=== PATIENT | male | born 1980 | race Caucasian/White ===

== ENCOUNTER 2017-08-27 02:06 | Observation (INO) | payer OTHER ==
[2017-08-27] VITALS (8 sets, daily range): BP systolic 134–146; BP diastolic 82–92; PULSE 71–105; TEMP 36.5–37.2; O2SAT 94–97; Ht 188 cm; Wt 132.0 kg
[~2017-08-27] VITALS: Ht 188 cm; Wt 132.0 kg
[2017-08-27] MEDS ORDERED: SODIUM CHLORIDE 0.9% 1000ML 1,000 ML IV STA (02:49)
[2017-08-27 03:21] LABS: BASO % 0.4 %; BASO ABS # 0.04 K/uL (0-0.2); EOS % 0.8 %; EOS ABS # 0.08 K/uL (0-0.5); HEMATOCRIT 47.6 % (42-52); HEMOGLOBIN 16.6 g/dL (14.0-18.0); IG# 0.02 K/uL (0.00-0.02); LYMPH ABS # 2.25 K/uL (1.2-3.4); MEAN CELL VOLUME 93.3 fL (80-100); MEAN CORPUSCULAR HEMOGLOBIN 32.5 pg (25-34); MEAN CORPUSCULAR HGB CONC 34.9 g/dl (32-36); MONO % 3.5 %; MONO ABS # 0.34 K/uL (0.11-0.59); NEUT % 72.1 %; NEUT ABS # 7.06 K/uL (1.4-6.5); PLATELET COUNT 320 K/uL (130-400); RED CELL DISTRIBUTION WIDTH CV 12.7 % (11.5-14.5); RED CELL DISTRIBUTION WIDTH SD 43.2 fL (36.4-46.3); WHITE BLOOD COUNT 9.79 K/uL (4.8-10.8)
[2017-08-27 03:34] LABS: INR 0.9 (0.9-1.1)
[2017-08-27 04:13] LABS: ALBUMIN 4.4 gm/dl (3.4-5.0); CALCIUM 9.1 mg/dl (8.5-10.1); CREATININE 1.39 mg/dl (0.60-1.40); TOTAL PROTEIN 8.9 gm/dl (6.4-8.2)
[2017-08-27] MEDS ORDERED: SODIUM CHLORIDE 0.9% 1000ML 2,000 ML IV STA (06:23)
--- NOTE | 2017-08-27 07:22 | DIAGNOSTIC IMAGING REPORT ---
CHEST ONE VIEW PORTABLE HISTORY: pre-op COMPARISON: None. FINDINGS: The lungs are clear. Cardiac silhouette is normal in size. No pleural effusions. No pneumothorax. IMPRESSION: No acute process. Electronically signed by: Lewis Garcia M.D. 08/27/2017 7:21 AM Dictated Date/Time: 08/27/2017 7:20 AM
--- NOTE | 2017-08-27 07:23 | DIAGNOSTIC IMAGING REPORT ---
R ANKLE MIN 3 VIEWS ROUTINE CLINICAL HISTORY: fall, pain COMPARISON: Right tibia and fibula radiographs August 27, 2017 at 2:14 am. FINDINGS: Interval casting is noted. Note is made of an oblique mildly displaced fracture through the distal shaft of the right tibia as well as an oblique mildly displaced fracture through the distal shaft of the right fibula. There is no ankle mortise widening. Well-corticated ossicles along the medial malleolus are likely old. IMPRESSION: Acute oblique mildly displaced fractures of the distal shaft of the right tibia and fibula. Electronically signed by: Juan Jose Scott M.D. 08/27/2017 7:22 AM Dictated Date/Time: 08/27/2017 7:15 AM
--- NOTE | 2017-08-27 07:24 | DIAGNOSTIC IMAGING REPORT ---
R TIBIA/FIBULA 2 VIEWS ROUTINE CLINICAL HISTORY: Fall. Right lower leg pain. COMPARISON STUDY: None. FINDINGS: Mildly displaced oblique fractures involving the proximal shaft of the fibula as well as the distal shafts of the tibia and fibula. The distal tibial fracture demonstrates up to 8 mm of lateral displacement and 1.3 cm of posterior displacement. Distal fibular fracture also demonstrates up to 1.2 cm of posterior displacement. Proximal fibular fracture demonstrates up to 8 mm of anterior displacement. Soft tissue swelling within the right lower leg. IMPRESSION: Displaced oblique fractures involving the distal shafts of the right tibia and fibula as well as the proximal shaft of the right fibula. Electronically signed by: Lewis Garcia M.D. 08/27/2017 7:23 AM Dictated Date/Time: 08/27/2017 7:21 AM
--- NOTE | 2017-08-27 07:53 | History and Physical ---
History & Physical Date Aug 27, 2017. Chief Complaint Right leg fractures. History of Present Illness Thompson is a pleasant 37-year-old male, who is cleaning up at his work [employer] when he sustained a fall injuring his right lower extremity. He was brought to the emergency room where x-rays were obtained of his right tib-fib and he was splinted. I was contacted for further evaluation and treatment. Additional History Hepatic Disease: No Endocrine Disorder: No Kidney Disease: No Hypertension: No Heart Disease: No Bleeding Tendencies: No Infectious Diseases: No Allergies Coded Allergies: No Known Allergies (Unverified , 08/27/17) Home Medications No Active Prescriptions or Reported Meds Physical Examination Head: normocephalic, atraumatic Neck: trachea midline Respiratory/Chest: normal breath sounds, no respiratory distress Cardiovascular: regular rate, rhythm Abdomen / GI: non tender Extremities: + pertinent finding (right lower extremity, he is in a AO type splint with a knee immobilizer. His sensation to light touch is intact distally. Brisk cap refill less than 2 seconds. He is able to wiggle his toes up and down.) Neurologic/Psych: oriented x 3 Addiitonal Comments: Patient is in no acute distress resting comfortably in his hospital bed. They have an appropriate mood and affect. They weigh 132 kg and are 188 cm tall. VITALS: Pulse 78-104, respiratory rate 20, blood pressure 137/80, pulse ox 98% on room air. RADIOGRAPHS: Right tib-fib show a short oblique distal third tibia fracture and fibula fracture. There is also an oblique fracture of the proximal third of the fibula. 3 views of the right ankle again show the above findings of a distal third oblique tibia fracture and a Nazario C fibula fracture. There appears to be an old a avulsion type fracture from the medial malleolus. The syndesmosis appears intact. Diagnosis Right distal third tib-fib fracture and proximal fibula fracture, concerning for syndesmotic injury, closed, emergency room visit. ASA Classification: ASA Class II Plan of Treatment After a lengthy discussion with the patient today regarding my above clinical findings, as well as reviewing their imaging, their treatment options of conservative management versus surgical intervention were discussed. The risk and benefits of each were discussed. The risks of surgery included but not limited to: Infection, bleeding, nerve damage, continued pain, stiffness, failure of the repair, failure of the hardware, compartment syndrome, repeat surgery, PA, stroke, , and deep vein thrombosis. They would like to proceed with surgery and informed consent was signed. They will be admitted for observation. The patient understood all my instructions and explanation; all their questions were satisfactorily addressed.
[2017-08-27] MEDS ORDERED: MoRPHine SULFATE 2 MG/ML CARP IV PRN (08:00)
[2017-08-27] MEDS ORDERED: DiphenhydrAMINE HCL 50 MG/ML VIAL IV PRN ×2 (08:00→15:30)
[2017-08-27] MEDS ORDERED: ONDANSETRON INJ 2 MG/ML 2 ML VIAL IV PRN ×3 (08:00→15:30)
[2017-08-27] MEDS ORDERED: MoRPHine SULFATE 2 MG/ML CARP ONE (08:08)
[2017-08-27] MEDS ORDERED: ONDANSETRON INJ 2 MG/ML 2 ML VIAL ONE ×2 (08:08→13:15)
[2017-08-27] MEDS ORDERED: IV FLUIDS COMPLETED PRN (09:00)
[2017-08-27] MEDS: SODIUM CHLORIDE 0.9% 1000ML 1,000 ML IV SCH ×2 (10:17→19:32)
[2017-08-27] MEDS ORDERED: BUPIVACAINE 0.5 % 5 MG/1 ML MPF 30ML VIAL ONE (11:58)
[2017-08-27] MEDS ORDERED: LIDOCAINE/EPINEPHRINE 1% 20 ML VIAL ONE (11:59)
[2017-08-27] MEDS ORDERED: CEFAZOLIN SOD 3000MG/15 ML IV PUSH IV ONE (12:08)
--- NOTE | 2017-08-27 12:27 | Progress Note ---
Progress Note Date of Service Aug 27, 2017. Progress Note Patient is evaluated in [facility]. He appears unimpaired by alcohol, however, his JEANETTE is 0.09% just tested prior to transpot to the OR holding area. As he is still above the legal limit for impairment, we will hold off on this non emergent surgery to hydrate the patient and will recheck in 1 hour. If he is below the legal limit of 0.08 at that time, he can be consented and we will proceed to the OR.
[2017-08-27] MEDS ORDERED: EpHEDrine SULFATE 50MG/5ML SYR ONE (13:15)
[2017-08-27] MEDS ORDERED: PHENYLEPHRINE 100MCG/ML 5ML SYR ONE (13:15)
[2017-08-27] MEDS ORDERED: SUCCINYLCHOLINE CHLORIDE 20 MG/ML 10 ML VIAL IV ONE (13:15)
[2017-08-27] MEDS ORDERED: PROPOFOL IV EMULSION 10 MG/ML 20 ML VIAL IV ONE (13:15)
[2017-08-27] MEDS ORDERED: MIDAZOLAM HCL 1 MG/ML 2ML VIAL ONE (13:16)
[2017-08-27] MEDS ORDERED: FENTANYL CITRATE INJ 50 MCG/1 ML 2 ML VIAL ONE (13:16)
[2017-08-27] MEDS ORDERED: HYDROmorphone INJ 1 MG/ML SYR IV PRN (14:15)
[2017-08-27] MEDS ORDERED: FENTANYL CITRATE INJ 50 MCG/1 ML 2 ML VIAL IV PRN (14:15)
[2017-08-27] MEDS ORDERED: PROMETHAZINE HCL INJ 6.25 MG in SODIUM CHLORIDE 0.9% 50ML 50 ML IV PRN (14:15)
[2017-08-27] MEDS ORDERED: EpHEDrine SULFATE INJ 50 MG/ML AMP IV PRN (14:15)
[2017-08-27] MEDS ORDERED: ATROPINE SULFATE 0.1 MG/ML 5ML SYR IV PRN (14:15)
[2017-08-27] MEDS ORDERED: HYDROmorphone INJ 2 MG/ML SYR/VIAL ONE (14:22)
[2017-08-27] MEDS ORDERED: ROCURONIUM BROMIDE 10 MG/ML 5 ML VIAL IV ONE (14:38)
[2017-08-27] MEDS ORDERED: NEOSTIGMINE METHYLSULFATE 5 MG/5 ML SYR ONE (14:49)
[2017-08-27] MEDS ORDERED: GLYCOPYRROLATE INJ 0.2 MG/ML VIAL ONE (14:49)
[2017-08-27] MEDS ORDERED: METOCLOPRAMIDE HCL INJ 5 MG/ML 2 ML VIAL IV PRN (15:30)
[2017-08-27] MEDS ORDERED: CEFAZOLIN IV 3,000 MG in DEXTROSE 5% 50ML 50 ML IV SCH (15:30)
[2017-08-27] MEDS: ACETAMINOPHEN 500 MG TAB PO SCH ×2 (16:00→23:55)
[2017-08-27] MEDS ORDERED: CEFAZOLIN SOD 1 GM VIAL ONE (17:49)
--- NOTE | 2017-08-27 17:51 | DIAGNOSTIC IMAGING REPORT ---
INTRAOPERATIVE RIGHT ANKLE 8 VIEWS CLINICAL HISTORY: Right ankle fracture COMPARISON STUDY: Earlier in the day FINDINGS: 48 seconds of fluoroscopic time was utilized. 8 intraoperative fluoroscopic spot images are provided for interpretation. There is been internal fixation of the distal fibular and distal tibial fractures with lateral and medial metallic plates respectively. Also evident is a proximal fibular fracture. IMPRESSION: Intraoperative radiographs demonstrating internal fixation of distal fibular and tibial fractures. Electronically signed by: Oral Bernardo M.D. 08/27/2017 5:49 PM Dictated Date/Time: 08/27/2017 5:47 PM
--- NOTE | 2017-08-27 18:17 | [facility] Post Operative Brief Note ---
Immediate Operative Summary Operative Date Aug 27, 2017. Pre-Operative Diagnosis Right distal third tib-fib fracture and proximal fibula fracture Post-Operative Diagnosis Right distal third tib-fib fracture and proximal fibula fracture Procedure(s) Performed Right Open Reduction Internal Fixation Distal 3rd Tibial Fibula Fracture Surgeon Dr. Morel Utility Agent Surgeon(s) Dr. Castano Estimated Blood Loss 30 ML Findings As above Fluids (cc crystalloids) 1700 Specimens None per surgeon Drains n/a Anesthesia GET Complication(s) None Disposition Recovery Room / PACU (Stable)
--- NOTE | 2017-08-27 18:18 | [facility] Operative Report ---
Operative Report Operative Date Aug 27, 2017. Pre-Operative Diagnosis Right distal third tib-fib fracture and proximal fibula fracture Post-Operative Diagnosis Right distal third tib-fib fracture and proximal fibula fracture Procedure(s) Performed 1) Open Reduction Internal Fixation Right Distal 3rd Tibial Fracture. 2) Open Reduction Internal Fixation Right Distal 3rd Fibula Fracture. 3) Closed treatment of proximal 3rd Right Fibula fracture. Surgeon Dr. Morel Room Service Manager Surgeon(s) Dr. Castano Estimated Blood Loss 30 ML Findings Displaced, unstable right distal third tibia and fibula fractures, with significant comminution in both. Minimally displaced right proximal third fibula fracture. Fluids 1700 Specimens None per surgeon Drains n/a Anesthesia GET Complication(s) None Disposition Recovery Room / PACU (Stable) Indications The patient is a 37 year old male who injured their right ankle cleaning up after a work green party, sustaining a displaced distal third tib-fib fractures and a proximal third fibula fracture. The patient and his family understands the risks of surgery, which include but are not limited to: bleeding, infection, re- operation, damage to nerves and arteries, continued pain, loss of reduction, hardware failure, the need for repeat surgery, decrease level of activity, compartment syndrome, and DVT. The patient and his family understand all of these instructions and explanations, all of their questions have been satisfactorily addressed. The patient and his family have elected to proceed with surgery and the informed consent was signed. Description of Procedure IMPLANTS: Tibia 1. 8 hole large frag narrow locking plate (Synthes). 2. 5.0 locking screws (26 x 3, 38, & 42 mm). 3. 4.5 cortical screws (28 & 36 mm). 4. 3.5 mm lag screw (28 mm). Fibula 1. 12 hole third tubular locking plate (Synthes). 2. 3.5 cortical screws (16 & 18 mm). 4. 3.5 mm locking screw (10, 14, 16 , & 18 mm). PROCEDURE: The patient was taken to the Operating Room and placed in the supine position on the operating table. After general anesthetic was administered a multidisciplinary time-out was performed identifying my initials on the right limb as the correct and operative limb. Prior to the incision being made, 3 grams of intravenous Ancef were given and another 2 g of Ancef were given at the end of the case as it was nearing 4 hours. The right leg was prepped and draped in the standard fashion. The distal fibula and tibia were marked as well as the planned incision centered about the distal fibula 15 cm in length and the medial incision was approximately 12 cm and started over the anterior crest and curved posteriorly to the medial malleolus. The planned incisions were injected with a 50:50 mixture of 1% lidocaine with epi and 0.5 % Marcaine plain for a total of 40 cc. The tibia fracture was approached first. The skin incision was made and carefully carried down to the fascia identifying the saphenous nerve and vein which were protected throughout. There was a rent in the fascia anteriorly and hematoma was evacuated immediately. There was some periosteal stripping. The fracture site was debrided with copious irrigation, dental pick, and removing any soft tissue and hematoma. There was noted comminution and slight deformity formation at the apex of the proximal medial fragment. A couple of very small cortical shards were removed. A reduction maneuver was performed with traction and internal rotation. Using a pointed reduction clamp to hold the fracture in place, a K wire was also used to maintain the reduction. A 3.5 mm lag screw was used and placed from anterior/distal/lateral to posterior/proximal/medial in the standard fashion. The pointed reduction clamp was able to be removed at that point. The 8 hole plate appeared to fit best and after contouring the plate to fit the bone, a nonlocking 4.5 mm screw was placed both in the proximal and distal fragments securing the plate down to the bone. Then locking screws were placed in the standard fashion. Fluoroscopy was brought in to ensure an anatomic reduction. A moist sponge was placed over top of the wound. Next our attention was drawn to the fibula as it appeared displaced significantly on the lateral. The planned incision was made and carried down to the fibula. As the fracture appeared to propagate more proximally then indicated on the x-rays, the incision was lengthened to better expose the proximal fragment. The fracture site was easily identified as there was a tear in the fascia. The Superficial Peroneal nerve was not identified as our dissection was carried more posteriorly. The fracture site was debrided with copious irrigation, dental pick, and removing any soft tissue and hematoma. Using a pointed reduction clamp the fracture was reduced, then a lion-jaw was also used to further maintain the comminuted distal portion of the fracture. A 12-hole third tubular locking plate was contoured to fit the distal fibula and a non-locking screw was placed through the plate through the distal and proximal fragments to secure the plate down to the bone. Then 2 additional locking screws were placed in the proximal and distal holes in the standard fashion. Fluoroscopy was brought in and external rotation testing showed the syndesmosis to be reduced and stable. The wounds were copiously irrigated. Final x-rays were obtained, including x- rays of the proximal fibula fracture that was minimally displaced. The fascia over the plates was closed with 0 Vicryl. The medial plate was difficult to completely cover with the periosteum as there was some loss due to the injury and the large nature of the plate. The deep subcutaneous soft tissue was closed with 2-0 Vicryl and the subcutaneous layer was closed with 3-0 Vicryl. The skin was closed with austin. The sponge and needle counts were correct. The wounds were covered with Xeroform, 4x4's, ABD's, Steril cast padding, and an AO splint was placed. The patient was awakened and taken to the recovery room in stable condition. Post-op Instructions: The patient will remain NWB for a minimum of 4 weeks. The patient will be admitted for observation. Pain medicine will be given. PT/OT, and discharge planning will see the patient tomorrow. DVT prophylaxis will continue with TEDs and foot pump on the left lower extremity and the patient will start Lovenox tomorrow morning. I attest to the content of the Intraoperative Record and any orders documented therein. Any exceptions are noted below.
[2017-08-27] MEDS ORDERED: OXYCODONE/ACETAMINOPHEN 5-325 TAB PO PRN ×2 (18:30)
[2017-08-27] MEDS ORDERED: MoRPHine SULFATE 4 MG/ML 1 ML CARP\\VIAL IV PRN (18:30)
[2017-08-27] MEDS ORDERED: NURSING VERBAL MED ORDER ONE (19:00)
[2017-08-27] MEDS ORDERED: LABETALOL HCL IV 5 MG/ML 20ML IV ONE (19:01)
--- NOTE | 2017-08-27 19:05 | Anesthesiology Progress Note ---
Anesthesia Post Op Note Date & Time Aug 27, 2017 at 19:05 Vital Signs Pain Intensity: 0 Vital Signs Past 12 Hours Date Time Temp Pulse Resp B/P (MAP) Pulse Ox O2 Delivery O2 Flow Rate FiO2 08/27/17 18:55 92 13 155/105 94 Oxymask 10 08/27/17 18:45 94 12 156/95 96 Oxymask 10 08/27/17 18:35 83 12 161/107 97 Oxymask 10 08/27/17 18:25 36.8 88 15 162/105 96 Oxymask 10 08/27/17 10:00 36.8 78 20 136/92 (107) 94 Room Air 08/27/17 09:55 Room Air 08/27/17 09:00 91 20 126/74 95 08/27/17 08:38 97 Room Air 08/27/17 08:00 92 20 126/87 97 Room Air Notes Mental Status: alert / awake / arousable, participated in evaluation Pt Amnestic to Procedure: Yes Nausea / Vomiting: adequately controlled Pain: adequately controlled Airway Patency, RR, SpO2: stable & adequate BP & HR: stable & adequate Hydration State: stable & adequate Anesthetic Complications: no major complications apparent
[2017-08-27] MEDS: DOCUSATE SODIUM 100 MG CAP PO SCH (20:56)
[2017-08-27] MEDS: ENOXAPARIN 30 MG/0.3 ML SYR SQ SCH (21:01)
[2017-08-27] MEDS: CEFAZOLIN IV 3,000 MG in SYRINGE 0 ML IV SCH (21:45)
[2017-08-28] MEDS: OXYCODONE HCL IR 5 MG TAB (IMMEDIATE RELEASE) PO PRN ×3 (01:42→11:22)
[2017-08-28] MEDS: SODIUM CHLORIDE 0.9% 1000ML 1,000 ML IV SCH (01:44)
[2017-08-28 04:00] VITALS: BP 121/74; PULSE 109; TEMP 36.9; O2SAT 98
--- NOTE | 2017-08-28 05:35 | EMERGENCY ROOM VISIT NOTE ---
History First contact with patient: 02:06 Chief Complaint: ANKLE PAIN Stated Complaint: FALL/ANKLE INJURY History of Present Illness The patient is a 37 year old male who presents to the Emergency Room with complaints of right lower leg pain after he fell at work. Patient works at [employer] and was at a work constitution party and was bringing back dishes and tripped and fell. Patient c/o right lower leg pain. He has been drinking alcohol. No drugs. Pain currently 8 out of 10. Movement makes it worse and nothing makes it better. He describes as throbbing. No prior fracture to this leg. He does not have an orthopedic doctor. Patient denies numbness, tingling, chest pain, dyspnea, abdominal pain, knee pain, thigh pain, foot pain, ankle pain or any other medical complaints. Patient denies hitting his head or passing out. History is also obtained from his supervising boss who states that he tripped and fell while bringing back dishes at a work constitution party. Review of Systems See HPI for pertinent positives & negatives. A total of 10 systems reviewed and were otherwise negative. Past Medical/Surgical History Medical Problems: (1) Tibia/fibula fracture None Social History Smoking Status: Current Every Day Smoker Alcohol Use: occasionally Drug Use: none Marital Status: Housing Status: lives with family Occupation Status: employed Current/Historical Medications No Active Prescriptions or Reported Meds Physical Exam Vital Signs Date Time Temp Pulse Resp B/P (MAP) Pulse Ox O2 Delivery O2 Flow Rate FiO2 08/27/17 08:00 92 20 126/87 97 Room Air 08/27/17 06:17 104 20 137/80 98 Room Air 08/27/17 05:06 78 20 128/89 98 Room Air 08/27/17 03:28 102 20 135/84 98 Room Air 08/27/17 02:14 36.7 93 20 131/102 98 Room Air Physical Exam VITALS: Vitals are noted on the nurse's note and reviewed by myself. Vital signs stable. GENERAL: Pleasant male with EtOH odor, in no acute distress, nondiaphoretic, well-developed well-nourished. SKIN: The skin was without rashes, erythema, edema, or bruising. There is no tenting of the skin. Capillary reflex less than 2 seconds. HEAD: Normocephalic atraumatic. EARS: External auditory canals clear, tympanic membranes pearly trevino without erythema or effusion bilaterally. EYES: Pupils equal round and reactive to light and accommodation. Conjunctivae with injection, sclerae without icterus. Extraocular movements intact. NOSE: Patent, turbinates without inflammation or discharge. MOUTH: Mucous membranes mildly dry Pharynx without erythema or exudate. Uvula midline. Airway patent. Tongue does not deviate. NECK: Supple without nuchal rigidity. No lymphadenopathy. No thyromegaly. Cervical spine is nontender. No JVD. HEART: Regular rate and rhythm LUNGS: Clear to auscultation bilaterally without wheezes, rales or rhonchi. No dullness to percussion. No retractions or accessory muscle use. ABDOMEN: Positive bowel sounds x 4. Normal tympanic percussion. Soft, nontender, without masses or organomegaly. Tee sign negative. No guarding or rebound tenderness. MUSCULOSKELETAL: No muscle atrophy, erythema, noted. Right lower leg tender to palpation over the proximal and distal tib-fib. No ankle tenderness. No foot tenderness. Pedal pulses equal present +2 bilaterally. Sensation is intact. No thoracic or lumbar tenderness on exam. Pelvis is stable. NEURO: Patient was alert and oriented to person place and time. Normal sensation to light and sharp touch. No focal neurological deficits. Medical Decision & Procedures Laboratory Results 08/27/17 03:10 Test 08/27/17 03:10 RDW Standard Deviation 43.2 fL (36.4-46.3) RDW Coefficient of Variation 12.7 % (11.5-14.5) White Blood Count 9.79 K/uL (4.8-10.8) Red Blood Count 5.10 M/uL (4.7-6.1) Hemoglobin 16.6 g/dL (14.0-18.0) Hematocrit 47.6 % (42-52) Mean Corpuscular Volume 93.3 fL (80-100) Mean Corpuscular Hemoglobin 32.5 pg (25-34) Mean Corpuscular Hemoglobin Concent 34.9 g/dl (32-36) Platelet Count 320 K/uL (130-400) Mean Platelet Volume 10.0 fL (7.4-10.4) Neutrophils (%) (Auto) 72.1 % Lymphocytes (%) (Auto) 23.0 % Monocytes (%) (Auto) 3.5 % Eosinophils (%) (Auto) 0.8 % Basophils (%) (Auto) 0.4 % Neutrophils # (Auto) 7.06 K/uL (1.4-6.5) Lymphocytes # (Auto) 2.25 K/uL (1.2-3.4) Monocytes # (Auto) 0.34 K/uL (0.11-0.59) Eosinophils # (Auto) 0.08 K/uL (0-0.5) Basophils # (Auto) 0.04 K/uL (0-0.2) Immature Granulocyte % (Auto) 0.2 % Immature Granulocyte # (Auto) 0.02 K/uL (0.00-0.02) Prothrombin Time 9.5 SECONDS (9.0-12.0) Prothromb Time International Ratio 0.9 (0.9-1.1) Activated Partial Thromboplast Time 25.0 SECONDS (21.0-31.0) Partial Thromboplastin Ratio 1.0 Anion Gap 9.0 mmol/L (3-11) Est Creatinine Clear Calc Drug Dose 106.1 ml/min Estimated GFR () 75.0 Estimated GFR (Non- 64.7 BUN/Creatinine Ratio 10.2 (10-20) Calcium Level 9.1 mg/dl (8.5-10.1) Total Bilirubin 0.3 mg/dl (0.2-1) Direct Bilirubin 0.1 mg/dl (0-0.2) Aspartate Amino Transf (AST/SGOT) 36 U/L (15-37) Alanine Aminotransferase (ALT/SGPT) 88 U/L (12-78) Alkaline Phosphatase 123 U/L (45-117) Total Protein 8.9 gm/dl (6.4-8.2) Albumin 4.4 gm/dl (3.4-5.0) Medications Administered Medications (Trade) Dose Ordered Sig/Qing Route Start Time Stop Time Status Last Admin Dose Admin Sodium Chloride 1,000 ml @ 999 mls/hr Q1H1M STAT IV 08/27/17 02:49 08/27/17 03:49 DC 08/27/17 02:49 999 MLS/HR Sodium Chloride 2,000 ml @ 999 mls/hr Q2H1M STAT IV 08/27/17 06:23 08/27/17 08:23 DC 08/27/17 06:23 999 MLS/HR Morphine Sulfate (MoRPHine SULFATE INJ) 2 mg Q2HWA PRN IV 08/27/17 08:00 09/10/17 07:59 08/27/17 10:17 2 MG Procedure Splinting Indication: Right Maisonneuve fracture Verbal consent obtained. Risks and benefits were explained with the usual customary discussion. The injured extremity was identified. The patient was prepped and measured for the placement of a stirrup and posterior ortho-glass splint. Splint applied in the standard fashion over a layer of webril and secured using an elastic bandage. Set into a position of function. Knee immobilizer was placed over this. Normal neurovascular status after placement verified by me. The patient tolerated the procedure well and the care of the splint was discussed with the patient/family. No complications. ED Course Prior records/ancillary studies reviewed. Triage Nursing notes reviewed. Additional history obtained from coworker The patient's history was concerning for traumatic injury Differential diagnosis: Etiologies such as fracture, dislocation, sprain, strain, intracranial, neurologic, as well as other traumatic pathologies were entertained. Physical examination findings: As above. The patients vitals were stable. ER treatment provided: IV Normal Saline hydration, 1000 mL. On reassessment the patient felt better. Vital signs were stable. Diagnostic interpretation by me: The labs revealed no leukocytosis. Stable H&H. Normal coags. Elevated alcohol. Mildly elevated LFTs most likely from the alcohol Imaging studies: Tib-fib x-ray concerning for Maisonneuve fracture per my interpretation Chest x-ray with no acute consolidation, pneumothorax or free air per my interpretation Consultation: A consultation was placed with the orthopedics, Dr. Morel. The case was discussed and diagnostics were reviewed. The patient was evaluated by him in the ER this morning. He does recommend currently though splint and knee immobilizer. This appears to be consistent with Maisonneuve fracture. This will require surgery. Preop testing was ordered per orthopedics request. Patient was splinted as above. His pain was under control. He will be evaluated by orthopedic surgery. Patient is admitted to their service. By the evaluation outlined above emergent etiologies such as intra-abdominal, pneumothorax, pulmonary contusion, hemothorax, intracranial, neurologic,as well as others were deemed relatively unlikely. The pt informed about the findings as listed above. All questions were answered and pleased with the treatment. Case reviewed by attending Medical Decision As above Head Trauma GCS Score: 15 Medication Reconcilliation Current Medication List: was personally reviewed by me Blood Pressure Screening Patient's blood pressure: Normal blood pressure Impression Primary Impression: Closed Maisonneuve fracture Departure Information Dispostion Being Evaluated By Surgeon Condition GOOD Prescriptions No Active Prescriptions or Reported Meds Referrals Larry Haro M.D.([facility]) (PCP) Patient Instructions My [facility] Problem Qualifiers Primary Impression: Closed Maisonneuve fracture Encounter type: initial encounter Fracture alignment: displaced Laterality : right Qualified Codes: S82.861A - Displaced Maisonneuve's fracture of right leg, initial encounter for closed fracture
[2017-08-28] MEDS: CEFAZOLIN IV 3,000 MG in SYRINGE 0 ML IV SCH (05:44)
[2017-08-28] MEDS ORDERED: CEFAZOLIN 3000MG IV PUSH 15 ML IV SCH (06:00)
[2017-08-28] MEDS ORDERED: CEFAZOLIN IV 3,000 MG in DEXTROSE 5% 50ML 50 ML IV SCH (06:00)
[2017-08-28 06:48] VITALS: O2SAT 98
[2017-08-28 07:25] VITALS: BP 141/90; PULSE 65; TEMP 36.8; O2SAT 97
[2017-08-28 08:34] LABS: HEMATOCRIT 38.7 % (42-52); MEAN CELL VOLUME 95.3 fL (80-100); MEAN CORPUSCULAR HGB CONC 33.6 g/dl (32-36); PLATELET COUNT 268 K/uL (130-400); RED CELL DISTRIBUTION WIDTH CV 12.8 % (11.5-14.5); RED CELL DISTRIBUTION WIDTH SD 44.7 fL (36.4-46.3); WHITE BLOOD COUNT 12.81 K/uL (4.8-10.8)
[2017-08-28] MEDS: ACETAMINOPHEN 500 MG TAB PO SCH (08:37)
[2017-08-28] MEDS: DOCUSATE SODIUM 100 MG CAP PO SCH (08:37)
[2017-08-28] MEDS: ENOXAPARIN 30 MG/0.3 ML SYR SQ SCH (08:38)
--- NOTE | 2017-08-28 08:57 | Anesthesiology Progress Note ---
Anesthesia Post Op Note Date & Time Aug 28, 2017 at 08:57 Vital Signs Pain Intensity: 5.0 Vital Signs Past 12 Hours Date Time Temp Pulse Resp B/P (MAP) Pulse Ox O2 Delivery O2 Flow Rate FiO2 08/28/17 07:35 Room Air 08/28/17 07:25 36.8 65 20 141/90 (107) 97 08/28/17 06:48 98 Room Air 08/28/17 04:00 36.9 109 18 121/74 (90) 98 Nasal Cannula 2.0 08/28/17 00:00 Nasal Cannula 2.0 08/27/17 23:45 37.2 105 18 146/86 (106) 96 Nasal Cannula 2.0 08/27/17 22:28 36.5 97 20 138/85 (102) 97 Nasal Cannula 2.0 08/27/17 21:27 37.2 94 18 141/82 (101) 97 Nasal Cannula 2.0 Notes Mental Status: alert / awake / arousable, participated in evaluation Pt Amnestic to Procedure: Yes Nausea / Vomiting: adequately controlled Pain: adequately controlled Airway Patency, RR, SpO2: stable & adequate BP & HR: stable & adequate Hydration State: stable & adequate Anesthetic Complications: no major complications apparent
[2017-08-28] MEDS ORDERED: MULTIVITAMIN TAB PO SCH (09:00)
[2017-08-28] MEDS ORDERED: ENOX40IN SQ (09:04)
[2017-08-28] MEDS ORDERED: OXYC-57 PO (09:04)
--- NOTE | 2017-08-28 10:15 | Medical Consult ---
Consultation Date of Consultation: Aug 28, 2017. Attending Physician: Iain Morel MD Reason for Consultation: Monitoring for DTs History of Present Illness Patient is a 37 y/o male, with no significant PMHx, who presented to the ED on due to R leg pain. Patient was at a work constitution party when he was carrying dishes back to the kitchen, tripped and fell, resulting in R tib-fib fracture. He admits to drinking alcohol during time of event. Right distal third tib-fib fracture and proximal fibula fracture was repaired by Dr. Morel on 08/27. Hospitalist team was consulted to monitor for DT's. Patient notes drinking on occasions, no more than 2 days per week at most. present at bedside, agrees and notes he normally only drinks at events, such as his work constitution party. Pain is currently well controlled. Eating and drinking OK. +flatus/no BM postop. Patient denies any fever, chills, sweats, lightheadedness, dizziness, vision changes, CP, palpitations, edema, SOB, wheezing, cough, abdominal pain, nausea, vomiting, diarrhea, urinary symptoms, melena, numbness/tingling, weakness, anxiety/depression, active bleeding, or new skin discoloration/changes. Past Medical/Surgical History Medical Problems: (1) Closed Maisonneuve fracture Status: Acute Family History HTN, T2DM, cancer Social History Smoking Status: Current Every Day Smoker Alcohol Use: occasionally Drug Use: none Marital Status: Housing Status: lives with family Occupation Status: employed ([employer]) Allergies Coded Allergies: No Known Allergies (Unverified , 08/27/17) Home Medications Reported Home Medications Medications Dose Route/Sig Max Daily Dose Days Date Category No Active Prescriptions or Reported Medications Rx Current Inpatient Medications Current Inpatient Medications Medications (Trade) Dose Ordered Sig/Qing Route Start Time Stop Time Status Last Admin Dose Admin Diphenhydramine HCl (Benadryl Inj) 25 mg Q8 PRN IV 08/27/17 08:00 09/26/17 07:59 Ondansetron HCl (Zofran Inj) 4 mg Q6H PRN IV 08/27/17 08:00 09/26/17 07:59 Morphine Sulfate (MoRPHine SULFATE INJ) 2 mg Q2HWA PRN IV 08/27/17 08:00 09/10/17 07:59 08/27/17 10:17 2 MG Miscellaneous (Iv Fluids Completed) 1 ea PRN PRN N/A 08/27/17 09:00 08/27/18 08:59 Oxycodone HCl (Roxicodone Immediate Rel Tab) 1-2 TABS FOR PAIN 1 TABLET ... Q4H PRN PO 08/27/17 15:30 09/10/17 15:29 08/28/17 06:37 10 MG Acetaminophen (Tylenol Tab) 1,000 mg Q8H PO 08/27/17 16:00 09/26/17 15:59 08/28/17 08:37 1,000 MG Docusate Sodium (coLACE CAP) 100 mg BID PO 08/27/17 21:00 09/26/17 20:59 08/28/17 08:37 100 MG Diphenhydramine HCl (Benadryl Cap) 25 mg Q8H PRN PO 08/27/17 15:30 09/26/17 15:29 Multivitamins (Multivitamin Tab) 1 tab QAM PO 08/28/17 09:00 09/27/17 08:59 08/28/17 08:37 1 TAB Metoclopramide HCl (Reglan Inj) 10 mg Q6H PRN IV 08/27/17 15:30 09/26/17 15:29 Enoxaparin Sodium (Lovenox Inj) 30 mg BID SQ 08/27/17 21:00 09/17/17 20:59 08/28/17 08:38 30 MG Morphine Sulfate (MoRPHine SULFATE INJ) 4 mg Q2HWA PRN IV 08/27/17 18:30 09/10/17 18:29 Oxycodone/ Acetaminophen (Percocet 5-325mg Tab) 1 tab Q4H PRN PO 08/27/17 18:30 09/10/17 18:29 Future Hold Oxycodone/ Acetaminophen (Percocet 5-325mg Tab) 2 tab Q4H PRN PO 08/27/17 18:30 09/10/17 18:29 Future Hold Physical Exam Date Time Temp Pulse Resp B/P (MAP) Pulse Ox O2 Delivery O2 Flow Rate FiO2 08/28/17 07:35 Room Air 08/28/17 07:25 36.8 65 20 141/90 (107) 97 08/28/17 06:48 98 Room Air 08/28/17 04:00 36.9 109 18 121/74 (90) 98 Nasal Cannula 2.0 08/28/17 00:00 Nasal Cannula 2.0 08/27/17 23:45 37.2 105 18 146/86 (106) 96 Nasal Cannula 2.0 08/27/17 22:28 36.5 97 20 138/85 (102) 97 Nasal Cannula 2.0 08/27/17 21:27 37.2 94 18 141/82 (101) 97 Nasal Cannula 2.0 08/27/17 20:36 36.7 102 20 134/86 (102) 94 Nasal Cannula 2.0 08/27/17 19:59 37.0 71 20 145/88 (107) 95 Nasal Cannula 2.0 08/27/17 19:25 95 Nasal Cannula 2.0 08/27/17 19:25 95 Nasal Cannula 2.0 08/27/17 19:25 37.1 98 16 140/89 (106) 95 Nasal Cannula 2.0 08/27/17 19:05 36.8 73 19 136/80 93 Nasal Cannula 2 08/27/17 18:55 92 13 155/105 94 Oxymask 10 08/27/17 18:45 94 12 156/95 96 Oxymask 10 08/27/17 18:35 83 12 161/107 97 Oxymask 10 08/27/17 18:25 36.8 88 15 162/105 96 Oxymask 10 08/27/17 10:00 36.8 78 20 136/92 (107) 94 Room Air 08/27/17 09:55 Room Air 08/27/17 09:00 91 20 126/74 95 General Appearance: no apparent distress, + obese Head: normocephalic, atraumatic Eyes: normal inspection, PERRL ENT: hearing grossly normal Neck: supple Respiratory/Chest: lungs clear, no respiratory distress, no accessory muscle use Cardiovascular: regular rate, rhythm Abdomen/GI: normal bowel sounds, non tender, soft Extremities/Musculoskelatal: no calf tenderness, no pedal edema, + pertinent finding (RLE wrapped in ZUNILDA bandage ) Neurologic/Psych: alert, normal mood/affect, oriented x 3 Skin: normal color, warm/dry, no rash Laboratory Results Last 24 Hours Test 08/27/17 11:14 08/27/17 13:10 08/28/17 08:14 Ethyl Alcohol mg/dL 90.0 mg/dl 52.0 mg/dl White Blood Count 12.81 K/uL Red Blood Count 4.06 M/uL Hemoglobin 13.0 g/dL Hematocrit 38.7 % Mean Corpuscular Volume 95.3 fL Mean Corpuscular Hemoglobin 32.0 pg Mean Corpuscular Hemoglobin Concent 33.6 g/dl RDW Standard Deviation 44.7 fL RDW Coefficient of Variation 12.8 % Platelet Count 268 K/uL Mean Platelet Volume 10.0 fL Assessment & Plan Patient is a 37 y/o male, with no significant PMHx, with R tib-fib fracture secondary to mechanical fall. s/p R distal third tib-fib fracture and proximal fibula fracture repair by Dr. Morel on 08/27: - Surgical management, pain management, PT/OT, and DVT prophylaxis as per primary team - Postop CBC and PRP -- Leukocytosis, likely secondary to postop response Acute blood loss anemia secondary to surgical procedure- STABLE: Follow H&H Occasional alcohol use- no evidence of withdrawal DVT prophylaxis: Lovenox SQ BID as per surgical team Code Status: LEVEL I, FULL Dispo: Discharge as per primary team- patient is medically stable for discharge at this time- will sign off, please feel free to call w/ any questions/concerns Reviewed: Pt Seen/Exam by Me History Physician Production Zone Leader Supervision Note: I interviewed and examined the patient. Discussed with JOE Gallegos and agree with findings and plan as documented in the note. Any exceptions or clarifications are listed here: Pt having pain in leg, but otherwise no complaints. No CP or SOB, making urine, som po, no CALHOUN. He feels comfortable giving himself Lovenox injections. Ready for discharge. Vitals reviewed NAD, obese RRR no mgr CTAB no wcr Abd +BS, sfit Ext Right leg in splint, toes with normal color and cap refill, left leg no edema or calf tenderness 37 yo male with h/o smoking, obesity, alcohol abuse, here with mechanical fall while intoxicated resulting in significant Right distal tib/fib fracture and prox fib fracture, now POD#1 s/p ORIF. -doing well post-op -pain control as per Ortho -DVT proph with Lovenox bid x 3 weeks then ASA bid x 3 weeks -f/u with Ortho and PCP within 1-2 weeks Documented By: Leeanna Aguayo
--- NOTE | 2017-08-28 10:17 | Orthopedic Progress Note ---
Orthopedic Progress Note Date of Service Aug 28, 2017. Subjective Post OP Day: 1 Reports: complaints (RLE pain, but controlled) Objective calves soft nontender, splint C/D/I, capillary refill less than 2 sec., A&O x3, toes mobile RLE: Sensation to light touch decreased 25%. Date Time Temp Pulse Resp B/P (MAP) Pulse Ox O2 Delivery O2 Flow Rate FiO2 08/28/17 07:35 Room Air 08/28/17 07:25 36.8 65 20 141/90 (107) 97 08/28/17 06:48 98 Room Air 08/28/17 04:00 36.9 109 18 121/74 (90) 98 Nasal Cannula 2.0 08/28/17 00:00 Nasal Cannula 2.0 08/27/17 23:45 37.2 105 18 146/86 (106) 96 Nasal Cannula 2.0 08/27/17 22:28 36.5 97 20 138/85 (102) 97 Nasal Cannula 2.0 08/27/17 21:27 37.2 94 18 141/82 (101) 97 Nasal Cannula 2.0 08/27/17 20:36 36.7 102 20 134/86 (102) 94 Nasal Cannula 2.0 08/27/17 19:59 37.0 71 20 145/88 (107) 95 Nasal Cannula 2.0 08/27/17 19:25 95 Nasal Cannula 2.0 08/27/17 19:25 95 Nasal Cannula 2.0 08/27/17 19:25 37.1 98 16 140/89 (106) 95 Nasal Cannula 2.0 08/27/17 19:05 36.8 73 19 136/80 93 Nasal Cannula 2 08/27/17 18:55 92 13 155/105 94 Oxymask 10 08/27/17 18:45 94 12 156/95 96 Oxymask 10 08/27/17 18:35 83 12 161/107 97 Oxymask 10 08/27/17 18:25 36.8 88 15 162/105 96 Oxymask 10 Laboratory Results 24 Hours: Test 08/28/17 08:14 Hematocrit 38.7 % Hemoglobin 13.0 g/dL Assessment & Plan Assessment: POD #1 status post ORIF R distal tib-fib fracture and closed treatment of proximal right fibula fracture, doing as well as expected. Plan: NWB RLE. Regular diet. Continue pain control. PT/OT to see today. DVT prophylaxis: TEDs, foot pumps, start Lovenox and continue for 3 weeks, then switch to aspirin 325 mg orally twice a day for another 3 weeks or until WBAT. To consider discharge later today if passes PT and pain is controlled with oral pain meds. If discharged, the patient will follow-up in one week for a wound check and splint change. Discharge Planning Discharge Planning: home DVT Prophylaxis: TEDs, Lovenox
[2017-08-28 11:21] VITALS: BP 149/87; PULSE 76; TEMP 36.8; O2SAT 94
[2017-08-28 13:05] VITALS: BP 149/87; PULSE 76; TEMP 36.8; O2SAT 94
--- NOTE | 2017-08-28 13:07 | Discharge Instructions ---
Discharge Instructions Date of Service Aug 28, 2017. Admission Reason for Admission: Right Tibia/Fibula Fracture Discharge Discharge Diagnosis / Problem: Right tibia and fibula s/p open reduction internal fixation Discharge Goals Goal(s): Decrease discomfort, Improve function, Increase independence Activity Recommendations Activity Limitations: as noted below Lifting Limitations: until after follow-up appointment Exercise/Sports Limitations: until after follow-up appointment Shower/Bathe: keep incision dry Driving or Machine Use: No driving Weightbearing Status: Right non-weightbearing . Instructions / Follow-Up Instructions / Follow-Up Ice and elevate your leg frequently. Start your Lovenox injections tomorrow morning. Current Hospital Diet Patient's current hospital diet: Regular Diet Discharge Diet Recommended Diet: Regular Diet Procedures Procedures Performed: 1) Open Reduction Internal Fixation Right Distal 3rd Tibial Fracture. 2) Open Reduction Internal Fixation Right Distal 3rd Fibula Fracture. 3) Closed treatment of proximal 3rd Right Fibula fracture. Pending Studies Studies pending at discharge: no Medical Emergencies . Who to Call and When: Medical Emergencies: If at any time you feel your situation is an emergency, please call 911 immediately. . Non-Emergent Contact Non-Emergency issues call your: Primary Care Provider, Surgeon Call Non-Emergent contact if: temperature is above 101, wound has increased drainage, wound has increased pain, you have any medication questions . "Provider Documentation" section prepared by Hiro Landry PA-C. . VTE Core Measure Inpt VTE Proph given/why not?: Enoxaparin (Lovenox)SQ, Saad Stockings, SCD's [place] Drug Monitoring Program Search Results: no issues identified
--- NOTE | 2017-08-29 07:16 | Discharge Summary ---
Orthopedic Discharge Summary Admission Date/Reason Aug 27, 2017 at 08:03 Tibia/Fibula Fracture. Discharge Date/Disposition Aug 28, 2017 Home Diagnosis Principal Diagnosis: Right tibial and fibular fractures Procedure(s) Performed Right tibia and fibula ORIF Consultations Hospitalist service, Dr. Aguayo Medication Reconciliation Lovenox 40 mg subcutaneous daily 3 weeks Percocet 1-2 tablets every 4 hours as needed for pain Admission Physical Exam As per Admitting History & Physical. Hospital Course This 37-year-old white male was admitted through the ED on 08/27/2017 after sustaining a right tibia and fibular fracture in the machine installer hours. Due to his intoxication level, surgery was postponed until the early afternoon. He underwent successful ORIF of the distal tibial and fibular fractures. The proximal fibular fracture did not require surgical intervention. He was taken to the recovery room in satisfactory condition. Pain was adequately managed throughout the evening. He did well overnight. Upon reassessment on 08/28/2017 , he was doing well and had no complaints. Patient remained afebrile. He was able to eat and drink. He participated in physical therapy and was able to use crutches successfully. He was discharged home under the care of his . Nonweightbearing status on the right leg was emphasized. Discharge Instructions Strict nonweightbearing on the right leg. Use crutches for ambulation. Ice and elevate frequently to reduce pain and swelling. Percocet 1-2 tablets every 4 hours as needed for severe pain. He may use Tylenol every 6 hours for mild pain. Continue Lovenox 40 mg subcutaneous daily for 3 weeks. Transition to aspirin 325 mg daily for 3 weeks at that point. Follow-up in the office on at 9:30 AM for splint removal and either casting or cam boot placement. Please refer to the electronic Patient Visit Report (Discharge Instructions) for additional information.
== END 2017-08-28 14:30 | disposition home or self-care (01) ==
LOC: EDBD 02:06 → C.EDB 02:07 → C.MSN 08:03 → ENRESERV 08:37
PROVIDERS: ADMIT Orthopaedic Surgery Sports Medicine; ATTEND Orthopaedic Surgery Sports Medicine
DX: S82.301A Unspecified fracture of lower end of right tibia, initial encounter for closed fracture (principal); S82.831A Other fracture of upper and lower end of right fibula, initial encounter for closed fracture; W01.0XXA Fall on same level from slipping, tripping and stumbling without subsequent striking against object, initial encounter; F10.129 Alcohol abuse with intoxication, unspecified; F17.200 Nicotine dependence, unspecified, uncomplicated; Z82.49 Family history of ischemic heart disease and other diseases of the circulatory system; Z83.3 Family history of diabetes mellitus

== ENCOUNTER → 2017-10-09 | Outpatient (CLI) | payer OTHER ==
[~2017-10-09] MED LIST: CALC500C70 PO; ENOX40IN SQ; IBUP-1050 PO; OXYC-57 PO
== END | disposition home or self-care (01) ==
LOC: C.RDSM 13:32
PROVIDERS: ATTEND Orthopaedic Surgery Sports Medicine
DX: Z09 Encounter for follow-up examination after completed treatment for conditions other than malignant neoplasm (principal); Z98.890 Other specified postprocedural states

== ENCOUNTER 2017-10-24 21:06 | Emergency (ER) | payer OTHER ==
[~2017-10-24] VITALS: Ht 188 cm; Wt 143.8 kg
[~2017-10-24 21:06] MED LIST changes: -CALC500C70 PO; -IBUP-1050 PO
[2017-10-24 21:13] VITALS: TEMP 36.5; Ht 188 cm; Wt 143.8 kg
[2017-10-24] MEDS ORDERED: SODIUM CHLORIDE 0.9% 1000ML 1,000 ML IV STA ×3 (21:17→22:44)
--- NOTE | 2017-10-24 21:19 | EMERGENCY ROOM VISIT NOTE ---
History Report prepared by Daphne: Juanjose Osorio Under the Supervision of: Dr. Alex Carey M.D. First contact with patient: 21:14 Chief Complaint: FALL Stated Complaint: FALL/HEAD INJURY/POSITIVE LOC History of Present Illness The patient is a 37 year old male who presents to the ED with a cc of constant left-sided head pain following a fall that occurred tonight. Positive for left hand pain and left knee pain. Negative for facial pain, abdominal pain , neck pain, pelvis pain, and leg pain. Per EMS, the patient was drinking beer tonight and fell down 11 stairs. He notes that the patient's witnessed the fall. He reports that the patient was unconscious for 10 minutes following his fall and does not remember it. He states that the patient has been bleeding from his left ear and has abrasions to the left elbow. He notes that the patient 's finger was dislocated, but reports that the patient self-reduced in upon transport to the emergency department. He states that the patient's vitals were stable while he was being transferred. Source of History: patient, EMS Onset: tonight Position: head (left-sided) Timing: constant Associated Symptoms: No neck pain, No abdominal pain Note: The patient also complains of left hand pain and left knee pain. He denies any facial pain, pelvis pain, and leg pain. Review of Systems See HPI for pertinent positives and negatives. A total of ten systems were reviewed and were otherwise negative. Past Medical & Surgical Medical Problems: (1) Tibia/fibula fracture Family History No pertinent family history stated. Social History Smoking Status: Current Every Day Smoker Alcohol Use: occasionally Drug Use: none Marital Status: Housing Status: lives with family Occupation Status: employed Current/Historical Medications Scheduled Calcium/Vitamin D (Os-Raúl 500 Plus D), 1 TAB PO DAILY Scheduled PRN Ibuprofen (Advil), 600 MG PO Q6H PRN for Pain Oxycodone/Acetaminophen 5MG/325MG (Percocet 5MG/325MG), 1 TABLET PO Q4H PRN for Pain Allergies Coded Allergies: No Known Allergies (Unverified , 08/27/17) Physical Exam Vital Signs Date Time Temp Pulse Resp B/P (MAP) Pulse Ox O2 Delivery O2 Flow Rate FiO2 10/24/17 23:37 92 19 119/74 98 3/8/18 23:16 92 19 119/74 98 Room Air 10/24/17 23:01 98 19 116/74 96 Room Air 10/24/17 22:46 92 19 115/77 99 Room Air 10/24/17 22:31 94 18 123/80 97 Room Air 10/24/17 22:16 94 18 109/65 97 Room Air 10/24/17 22:01 92 13 138/101 99 Room Air 10/24/17 21:46 98 26 143/89 97 Room Air 10/24/17 21:43 133/91 10/24/17 21:20 Room Air 10/24/17 21:13 36.5 90 15 150/104 97 Room Air 10/24/17 21:10 97 Physical Exam GENERAL: Awake, easily arousable, slurred speech, follows commands HENT: No midline C spine tenderness, abrasions to face, bleeding from bilateral nares, bleeding from left external auditory canal, auricular hematoma to the left ear, perforated TM with hemotympanum EYES: Normal conjunctiva. Sclera non-icteric. NECK: Supple. No nuchal rigidity. FROM. RESPIRATORY: CTAB, no rhonchi, wheezing, crackles, clear breath sounds CARDIAC: RRR, no MRG ABDOMEN: Soft, NTND, BS+ MSK: No chest wall TTP, no LE edema, pain to left hand and left knee, no pain w / palpation to pelvis. NEURO: GCS 14, CN 2-12 grossly intact but w/ slurred speech, moves all 4s on command, good symmetric strength SKIN: No rash or jaundice noted. Abrasion to L knee Medical Decision & Procedures ER Provider Diagnostic Interpretation: Radiology results as stated below per my review and radiologist interpretation: PELVIS 1 OR 2 VIEW ROUTINE FINDINGS: Contrast is seen within the urinary bladder lumen and distal ureters. Degenerative changes are noted about the bilateral hips which appear to be moderate. No acute fracture or subluxation is identified. No pelvic ring fracture. IMPRESSION: No acute fracture or dislocation. The above report was generated using voice recognition software. It may contain grammatical, syntax or spelling errors. Electronically signed by: Brayden Lnadry M.D. 10/24/2017 10:20 PM FACIAL BONES-MXILLOFAC WITHOUT FINDINGS: Multiple fractures of the skull base are redemonstrated including left occipital and temporal bone fractures. Acute nondisplaced fracture of the clivus. Fractures of the left temporal bone are in close proximity to the petrous portion left internal carotid artery as seen on image 250 series 6. Additional fractures involve the clivus and left sphenoid sinus. Moderate bilateral mastoid effusions. Pterygoid plates, maxillary barrera, orbital barrera, nasal bone, zygomatic arches and mandible appear intact without additional acute fracture identified. Hemorrhage is noted within the left sphenoid sinus, posterior left ethmoid air cells and layering within the left maxillary sinus. Mild soft tissue swelling about the left ear. Air is noted within the soft tissues adjacent to the bilateral mastoid air cells. Fracture of the right temporal bone is suspected however not definitively seen. IMPRESSION: 1. Multiple acute fractures of the skull base including clivus, left occipital, left temporal bone and left sphenoid fractures. Hemorrhage is noted within the left sphenoid sinus, ethmoid air cells, left maxillary sinus and bilateral mastoid air cells. Deep tissue air about the right temporal bone suggests a right temporal bone fracture which is not definitively seen. Fluid is also noted within the bilateral middle ear cavities. 2. Fracture of the left temporal bone is in close proximity to the petrous portion left internal carotid artery. Correlate clinically to exclude vascular injury. The above report was generated using voice recognition software. It may contain grammatical, syntax or spelling errors. Electronically signed by: Brayden Landry M.D. 10/24/2017 10:17 PM HEAD WITHOUT CONTRAST (CT) FINDINGS: Motion degraded exam. No midline shift, intracranial mass, hydrocephalus, or territorial ischemia. Increased attenuation outlining the sulci of the left upper lobe near the vertex noted on image 24 series 3. There is an acute nondisplaced fracture of the left occiput with transversely oriented fracture extending through the left mastoid air cells. Moderate left mastoid effusion. Small right mastoid effusion. Mild degree of fluid is noted within the bilateral middle ear cavities. Orbits appear symmetric. IMPRESSION: 1. Increased attenuation outlining the sulci of the left upper lobe near the vertex is equivocal for acute subarachnoid hemorrhage. No large intra-axial or extra-axial intracranial hemorrhage identified. No midline shift. 2. Acute nondisplaced fracture of the left occipital bone extends through the left mastoid air cells with moderate associated left mastoid effusion. 3. Small right mastoid effusion also noted without additional acute fracture identified. The above report was generated using voice recognition software. It may contain grammatical, syntax or spelling errors. Electronically signed by: Brayden Landry M.D. 10/24/2017 9:57 PM CHEST ONE VIEW PORTABLE FINDINGS: Cardiomediastinal and hilar silhouettes are within normal limits. No pneumothorax, pleural effusion, focal airspace consolidation or overt pulmonary edema. Linear catheter or lead overlies the epigastric region. Bones appear grossly intact. IMPRESSION: No acute process. The above report was generated using voice recognition software. It may contain grammatical, syntax or spelling errors. Electronically signed by: Brayden Landry M.D. 10/24/2017 10:[address] WITH CONTRAST CT CHEST: Homogeneous thyroid. No pathologic adenopathy. Heart is normal in size without pericardial effusion or mediastinal hematoma. The imaged great vessels appear patent. No aortic aneurysm or dissection. The opacified pulmonary arterial tree is unremarkable. Fat attenuation is noted at the level of the left lung base, notably image 224 series 12 with mild irregularity of the adjacent diaphragm, also seen on the same image. No pneumothorax or pleural effusion. Bibasilar groundglass opacities suggest atelectasis. There are several scattered nodules measuring up to 3 mm which are nonspecific. 4 mm nodule of the inferior segment lingula. No large pulmonary contusion or pulmonary laceration. Central airways appear patent. Soft tissues are unremarkable. The bones appear intact. No acute displaced rib fractures. No sternal fracture. CT ABDOMEN/PELVIS: The liver, gallbladder, spleen, pancreas and adrenal glands are within normal limits. Low attenuating lesions of the left kidney measuring up to 7 mm suggest renal cysts. No evidence of acute solid organ injury, pneumatosis or pneumoperitoneum. Aorta is normal in course and caliber. No bulky adenopathy. No focal bowel wall thickening or evidence of bowel injury. Urinary bladder is within normal limits. Normal appendix. Soft tissues are unremarkable. Degenerative changes of the bilateral SI joints. No spine fracture. Degenerative changes about the bilateral hips. IMPRESSION: 1. No acute intrathoracic, intra-abdominal or intrapelvic abnormality identified. No definite acute fracture or evidence of acute solid organ injury. 2. No pneumoperitoneum, or pneumothorax. 3. Fat attenuation of the left lung base suggests probable Bochdalek hernia with a very subtle acute diaphragmatic injury thought to be less likely. Electronically signed by: Brayden Landry M.D. 10/24/2017 10:33 PM CERVICAL SPINE W/O FINDINGS: Acute fractures of the skull base are noted involving the left occipital and temporal bones extending through the left mastoid air cells. Additional acute fracture involves the anterolateral wall of the left sphenoid sinus. Acute fracture of the clivus also noted. Bilateral mastoid effusions with fluid also present within the bilateral middle ear cavities. There is no acute cervical spine fracture or subluxation identified. The imaged ribs and clavicles also appear intact. No significant degenerative changes. Multilevel mild uncovertebral spurring. No prevertebral soft tissue swelling. Lung apices are clear. Soft tissues are unremarkable. IMPRESSION: 1. Multiple acute fractures of the skull base including fractures of the left occipital and temporal bones, clivus and left sphenoid sinus. 2. No acute cervical spine fracture or subluxation identified. 3. Moderate sized bilateral mastoid effusions. The above report was generated using voice recognition software. It may contain grammatical, syntax or spelling errors. Electronically signed by: Brayden Landry M.D. 10/24/2017 10:[address] WITH CONTRAST FINDINGS: CT CHEST: Homogeneous thyroid. No pathologic adenopathy. Heart is normal in size without pericardial effusion or mediastinal hematoma. The imaged great vessels appear patent. No aortic aneurysm or dissection. The opacified pulmonary arterial tree is unremarkable. Fat attenuation is noted at the level of the left lung base, notably image 224 series 12 with mild irregularity of the adjacent diaphragm, also seen on the same image. No pneumothorax or pleural effusion. Bibasilar groundglass opacities suggest atelectasis. There are several scattered nodules measuring up to 3 mm which are nonspecific. 4 mm nodule of the inferior segment lingula. No large pulmonary contusion or pulmonary laceration. Central airways appear patent. Soft tissues are unremarkable. The bones appear intact. No acute displaced rib fractures. No sternal fracture. CT ABDOMEN/PELVIS: The liver, gallbladder, spleen, pancreas and adrenal glands are within normal limits. Low attenuating lesions of the left kidney measuring up to 7 mm suggest renal cysts. No evidence of acute solid organ injury, pneumatosis or pneumoperitoneum. Aorta is normal in course and caliber. No bulky adenopathy. No focal bowel wall thickening or evidence of bowel injury. Urinary bladder is within normal limits. Normal appendix. Soft tissues are unremarkable. Degenerative changes of the bilateral SI joints. No spine fracture. Degenerative changes about the bilateral hips. IMPRESSION: 1. No acute intrathoracic, intra-abdominal or intrapelvic abnormality identified. No definite acute fracture or evidence of acute solid organ injury. 2. No pneumoperitoneum, or pneumothorax. 3. Fat attenuation of the left lung base suggests probable Bochdalek hernia with a very subtle acute diaphragmatic injury thought to be less likely. Electronically signed by: Brayden Landry M.D. 10/24/2017 10:33 PM Laboratory Results 10/24/17 21:17 Red Blood Count 4.84, Mean Corpuscular Volume 92.1, Mean Corpuscular Hemoglobin 32.4, Mean Corpuscular Hemoglobin Concent 35.2, Mean Platelet Volume 10.3, Neutrophils (%) (Auto) 47.1, Lymphocytes (%) (Auto) 43.6, Monocytes (%) (Auto) 6.6, Eosinophils (%) (Auto) 2.0, Basophils (%) (Auto) 0.4, Neutrophils # (Auto) 4.51, Lymphocytes # (Auto) 4.18, Monocytes # (Auto) 0.63, Eosinophils # (Auto) 0.19, Basophils # (Auto) 0.04 10/24/17 21:17 Test 10/24/17 21:17 10/24/17 21:22 10/24/17 21:24 10/24/17 21:47 White Blood Count 9.58 K/uL (4.8-10.8) Red Blood Count 4.84 M/uL (4.7-6.1) Hemoglobin 15.7 g/dL (14.0-18.0) Hematocrit 44.6 % (42-52) Mean Corpuscular Volume 92.1 fL (80-100) Mean Corpuscular Hemoglobin 32.4 pg (25-34) Mean Corpuscular Hemoglobin Concent 35.2 g/dl (32-36) Platelet Count 324 K/uL (130-400) Mean Platelet Volume 10.3 fL (7.4-10.4) Neutrophils (%) (Auto) 47.1 % Lymphocytes (%) (Auto) 43.6 % Monocytes (%) (Auto) 6.6 % Eosinophils (%) (Auto) 2.0 % Basophils (%) (Auto) 0.4 % Neutrophils # (Auto) 4.51 K/uL (1.4-6.5) Lymphocytes # (Auto) 4.18 K/uL (1.2-3.4) Monocytes # (Auto) 0.63 K/uL (0.11-0.59) Eosinophils # (Auto) 0.19 K/uL (0-0.5) Basophils # (Auto) 0.04 K/uL (0-0.2) RDW Standard Deviation 42.7 fL (36.4-46.3) RDW Coefficient of Variation 12.7 % (11.5-14.5) Immature Granulocyte % (Auto) 0.3 % Immature Granulocyte # (Auto) 0.03 K/uL (0.00-0.02) Est Creatinine Clear Calc Drug Dose 103.6 ml/min Estimated GFR () 69.0 Estimated GFR (Non- 59.5 BUN/Creatinine Ratio 9.4 (10-20) Calcium Level 8.8 mg/dl (8.5-10.1) Total Bilirubin 0.5 mg/dl (0.2-1) Direct Bilirubin 0.1 mg/dl (0-0.2) Aspartate Amino Transf (AST/SGOT) 26 U/L (15-37) Alanine Aminotransferase (ALT/SGPT) 52 U/L (12-78) Alkaline Phosphatase 127 U/L (45-117) Total Creatine Kinase 97 U/L (39-308) Troponin I < 0.015 ng/ml (0-0.045) Total Protein 8.5 gm/dl (6.4-8.2) Albumin 4.3 gm/dl (3.4-5.0) Lipase 140 U/L (73-393) Ethyl Alcohol mg/dL 211.5 mg/dl (0-3) Bedside Hemoglobin 15.6 g/dl (14.0-18.0) Bedside Hematocrit 46 % (42-52) Bedside Sodium 142 mEq/L (135-144) Bedside Potassium 4.0 mEq/L (3.3-5.0) Bedside Chloride 102 mEq/L (101-112) Bedside Total CO2 27 mEq/l (24-31) Anion Gap 18.0 mmol/L (16-25) Bedside Blood Urea Nitrogen 15 mg/dl (7-18) Bedside Creatinine 1.6 mg/dl (0.6-1.3) Bedside Glucose (other) 133 mg/dl (70-99) Bedside Ionized Calcium (Ulysses) 1.12 mmol/l (1.12-1.32) Bedside Troponin I < 0.030 ng/ml (0-0.045) Bedside Prothrombin Time INR 1.1 (0.9-1.1) Test 10/24/17 21:49 10/24/17 21:58 10/24/17 23:15 Bedside Lactic Acid Venous 3.71 mmol/L (0.90-1.70) Prothrombin Time 10.1 SECONDS (9.0-12.0) Prothromb Time International Ratio 1.0 (0.9-1.1) Activated Partial Thromboplast Time 24.9 SECONDS (21.0-31.0) Partial Thromboplastin Ratio 1.0 Urine Color YELLOW Urine Appearance CLEAR (CLEAR) Urine pH 5.5 (4.5-7.5) Urine Specific [place] 1.033 (1.000-1.030) Urine Protein TRACE (NEG) Urine Glucose (UA) NEG (NEG) Urine Ketones TRACE (NEG) Urine Occult Blood NEG (NEG) Urine Nitrite NEG (NEG) Urine Bilirubin NEG (NEG) Urine Urobilinogen NEG (NEG) Urine Leukocyte Esterase NEG (NEG) Urine WBC (Auto) 0 /hpf (0-5) Urine RBC (Auto) 0-4 /hpf (0-4) Urine Hyaline Casts (Auto) 1-5 /lpf (0-5) Urine Epithelial Cells (Auto) 0-5 /lpf (0-5) Urine Bacteria (Auto) NEG (NEG) Urine Opiates Screen NEG (NEG) Urine Methadone, Qualitative NEG (NEG) Urine Barbiturates NEG (NEG) Urine Phencyclidine (PCP) Level NEG (NEG) Ur Amphetamine/Methamphetamine NEG (NEG) MDMA (Ecstasy) Screen NEG (NEG) Urine Benzodiazepines Screen NEG (NEG) Urine Cocaine Metabolite NEG (NEG) Urine Marijuana (THC) POS (NEG) Laboratory results reviewed by me Medications Administered Medications (Trade) Dose Ordered Sig/Qing Route Start Time Stop Time Status Last Admin Dose Admin Sodium Chloride 1,000 ml @ 999 mls/hr Q1H1M STAT IV 10/24/17 21:17 10/24/17 22:17 DC 10/24/17 21:51 999 MLS/HR Diphtheria/ Pertussis/Tetanus Vacc (Adacel Inj) 0.5 ml ONCE ONCE IM. 10/24/17 21:30 10/24/17 21:31 DC 10/24/17 21:53 0.5 ML Levetiracetam 1000 mg/Dextrose 110 ml @ 440 mls/hr ONE ONCE IV 10/24/17 22:15 10/24/17 22:29 DC 10/24/17 22:24 440 MLS/HR Sodium Chloride 1,000 ml @ 125 mls/hr Q8H STAT IV 10/24/17 22:44 10/25/17 00:09 DC 10/24/17 22:46 125 MLS/HR ECG Per My Interpretation Indication: other (trauma) Rate (beats per minute): 91 Findings: other (Lots of motion artifact, normal intervals, normal axis, no obvious STS changes or TWI) ED Course 2113: The patient was evaluated in room A1. A complete history and physical exam was performed. 2149: I reevaluated and updated the patient. 2221: Upon reexamination, the patient was stable. I discussed the test results and treatment plan with Dr. Cespedes - Emergency Room, [facility]. The patient will be transferred for further management. Medical Decision The patient is a 37 year old male who presents to the ED with a cc of constant left-sided head pain following a fall that occurred tonight. Positive for left hand pain and left knee pain. Negative for facial pain, abdominal pain , neck pain, pelvis pain, and leg pain. Differential diagnosis: Etiologies such as fracture, dislocation, intra-abdominal, pneumothorax, intrathoracic , intracranial, neurologic, as well as other traumatic pathologies were entertained. I did receive word that the patient is coming as a possible trauma from the charge nurse. Prior records were reviewed. Patient was seen and evaluated at the bedside. I did take report from EMS stated that the patient initially was having some difficulty with breathing and was not as coherent. The patient reportedly did drink a fair amount of alcohol and had a semi-witnessed fall down a flight of stairs. Patient did have a sugar that was checked that was normal. Patient does have an IV in place. Patient's vitals were normal. Upon assessment of the patient the patient did have a GCS of 14. Patient denied any acute pains. Patient did have blood coming from the external auditory canal of the left ear. He also did have an auricular hematoma. Patient had no C-spine tenderness to palpation. Patient was able to move all of his extremities to command. The patient did have blood work completed along with tetanus and CTs of the head and neck face chest abdomen and pelvis. Patient also did have plain films of the chest and pelvis ordered. The patient was placed in a c-collar. Patient CTs were concerning for acute traumatic subarachnoid hemorrhage, occipital condyle fracture, temporal bone fracture, as well as additional facial fractures. The transfer was initiated at this time. Patient CTs of the chest abdomen pelvis were negative acute. Patient was given Keppra for seizure prophylaxis. The patient was not hypertensive and did not require medications for blood pressure control given his subarachnoid hemorrhage. The patient C- spine was not able to be cleared at this time given the patient's intoxication and traumatic injuries. The c-collar was left in place. I did discuss the findings with the who presented at the bedside. Patient's blood work was fairly unremarkable. He did have mild elevation in his creatinine. Fairly unchanged from prior in August. Patient H and H was normal. Coags normal, platelet count normal. Patient's alcohol was elevated. UDS did show positive marijuana. I did discuss the patient with the emergency medicine physician at [facility]. They agreed to accept the patient. Patient was started on maintenance IV fluids. I did give report to the transferring ambulance service. The patient was transported to [facility]. Head Trauma GCS Score: 15 Medication Reconcilliation Current Medication List: was personally reviewed by me Blood Pressure Screening Patient's blood pressure: Normal blood pressure Blood pressure disposition: Did not require urgent referral Consults Time Called: 2219 Consulting Physician: Dr. Cespedes - Emergency Room, [facility] Returned Call: [phone] Discussed the patient's case. The patient will be evaluated for further treatment and disposition. Impression Primary Impression: Traumatic subarachnoid hemorrhage Additional Impressions: Temporal bone fracture Occipital bone fracture Basilar skull fracture Fall Hematoma of auricle Critical Care I have personally spent greater than 75 minutes of critical care time in the direct management of this patient. This includes bedside care, interpretation of diagnostic studies, and testing, discussion with consultants, patient, and family members, and other required patient management activities. This 75 minutes is in excess of all separately billable procedures. Scribe Attestation The scribe's documentation has been prepared under my direction and personally reviewed by me in its entirety. I confirm that the note above accurately reflects all work, treatment, procedures, and medical decision making performed by me. Departure Information Dispostion Transfer Acute Care Facility Referrals Larry Haro M.D.([facility]) (PCP) Patient Instructions My [facility] Problem Qualifiers Primary Impression: Traumatic subarachnoid hemorrhage Encounter type: initial encounter Loss of consciousness presence/duration: with LOC of 30 min or less Qualified Codes: S06.6X1A - Traumatic subarachnoid hemorrhage with loss of consciousness of 30 minutes or less, initial encounter Additional Impressions: Temporal bone fracture Encounter type: initial encounter Fracture type: closed Qualified Codes: S02.19XA - Other fracture of base of skull, initial encounter for closed fracture Occipital bone fracture Encounter type: initial encounter Fracture type: closed Occipital fracture type: unspecified fracture of occiput Laterality: left Qualified Codes: S02.119A - Unspecified fracture of occiput, initial encounter for closed fracture Basilar skull fracture Encounter type: initial encounter Fracture type: closed Laterality: left Qualified Codes: S02.102A - Fracture of base of skull, left side, initial encounter for closed fracture Fall Encounter type: initial encounter Qualified Codes: W19.XXXA - Unspecified fall, initial encounter Hematoma of auricle Encounter type: initial encounter Laterality: left Qualified Codes: S00.432A - Contusion of left ear, initial encounter
[2017-10-24] MEDS ORDERED: DIPHTHERIA/TETANUS/PERTUSSIS 0.5 ML SYR/VIAL IM. ONE (21:30)
[2017-10-24 21:36] LABS: ISTAT CREATININE 1.6 mg/dl (0.6-1.3); ISTAT IONIZED CALCIUM 1.12 mmol/l (1.12-1.32)
[2017-10-24 21:37] LABS: BASO % 0.4 %; BASO ABS # 0.04 K/uL (0-0.2); EOS ABS # 0.19 K/uL (0-0.5); HEMATOCRIT 44.6 % (42-52); HEMOGLOBIN 15.7 g/dL (14.0-18.0); IG# 0.03 K/uL (0.00-0.02); LYMPH % 43.6 %; LYMPH ABS # 4.18 K/uL (1.2-3.4); MEAN CELL VOLUME 92.1 fL (80-100); MEAN CORPUSCULAR HEMOGLOBIN 32.4 pg (25-34); MEAN CORPUSCULAR HGB CONC 35.2 g/dl (32-36); MEAN PLATELET VOLUME 10.3 fL (7.4-10.4); MONO % 6.6 %; MONO ABS # 0.63 K/uL (0.11-0.59); NEUT % 47.1 %; NEUT ABS # 4.51 K/uL (1.4-6.5); PLATELET COUNT 324 K/uL (130-400); RED CELL DISTRIBUTION WIDTH CV 12.7 % (11.5-14.5); RED CELL DISTRIBUTION WIDTH SD 42.7 fL (36.4-46.3); WHITE BLOOD COUNT 9.58 K/uL (4.8-10.8)
[2017-10-24] MEDS ORDERED: OPTIRAY 320 IV PRN (21:45)
--- NOTE | 2017-10-24 21:59 | DIAGNOSTIC IMAGING REPORT ---
HEAD WITHOUT CONTRAST (CT) CLINICAL HISTORY: 37 years-old Male with EVALUATE FOR TRAUMA/INJURY. Acute head injury status post trauma TECHNIQUE: Multiple axial CT images of the head were obtained without contrast. A dose lowering technique was utilized adhering to the principles of ALARA. COMPARISON: CT cervical spine of same day. FINDINGS: Motion degraded exam. No midline shift, intracranial mass, hydrocephalus, or territorial ischemia. Increased attenuation outlining the sulci of the left upper lobe near the vertex noted on image 24 series 3. There is an acute nondisplaced fracture of the left occiput with transversely oriented fracture extending through the left mastoid air cells. Moderate left mastoid effusion. Small right mastoid effusion. Mild degree of fluid is noted within the bilateral middle ear cavities. Orbits appear symmetric. IMPRESSION: 1. Increased attenuation outlining the sulci of the left upper lobe near the vertex is equivocal for acute subarachnoid hemorrhage. No large intra-axial or extra-axial intracranial hemorrhage identified. No midline shift. 2. Acute nondisplaced fracture of the left occipital bone extends through the left mastoid air cells with moderate associated left mastoid effusion. 3. Small right mastoid effusion also noted without additional acute fracture identified. The above report was generated using voice recognition software. It may contain grammatical, syntax or spelling errors. Electronically signed by: Brayden Landry M.D. 10/24/2017 9:57 PM Dictated Date/Time: 10/24/2017 9:50 PM
[2017-10-24 22:00] LABS: ALBUMIN 4.3 gm/dl (3.4-5.0); ALT/SGPT 52 U/L (12-78); BLOOD UREA NITROGEN 14 mg/dl (7-18); CALCIUM 8.8 mg/dl (8.5-10.1); CARBON DIOXIDE 27 mmol/L (21-32); CREATININE 1.49 mg/dl (0.60-1.40); GLUCOSE 129 mg/dl (70-99); LIPASE 140 U/L (73-393); POTASSIUM 3.8 mmol/L (3.5-5.1); SODIUM 138 mmol/L (136-145)
[2017-10-24] MEDS ORDERED: OXYC-57 PO (22:04)
[2017-10-24] MEDS ORDERED: IBUP-1050 PO (22:04)
[2017-10-24] MEDS ORDERED: CALC500C70 PO (22:04)
[2017-10-24 22:05] LABS: ALKALINE PHOSPHATASE 127 U/L (45-117); AST/SGOT 26 U/L (15-37); TOTAL PROTEIN 8.5 gm/dl (6.4-8.2)
--- NOTE | 2017-10-24 22:06 | DIAGNOSTIC IMAGING REPORT ---
CERVICAL SPINE W/O CLINICAL HISTORY: 37 years-old Male with EVALUATE FOR TRAUMA/INJURY. Acute neck trauma COMPARISON: CT head of same day TECHNIQUE: Multiple axial CT images of the cervical spine were obtained without contrast. A dose lowering technique was utilized adhering to the principles of ALARA. FINDINGS: Acute fractures of the skull base are noted involving the left occipital and temporal bones extending through the left mastoid air cells. Additional acute fracture involves the anterolateral wall of the left sphenoid sinus. Acute fracture of the clivus also noted. Bilateral mastoid effusions with fluid also present within the bilateral middle ear cavities. There is no acute cervical spine fracture or subluxation identified. The imaged ribs and clavicles also appear intact. No significant degenerative changes. Multilevel mild uncovertebral spurring. No prevertebral soft tissue swelling. Lung apices are clear. Soft tissues are unremarkable. IMPRESSION: 1. Multiple acute fractures of the skull base including fractures of the left occipital and temporal bones, clivus and left sphenoid sinus. 2. No acute cervical spine fracture or subluxation identified. 3. Moderate sized bilateral mastoid effusions. The above report was generated using voice recognition software. It may contain grammatical, syntax or spelling errors. Electronically signed by: Brayden Landry M.D. 10/24/2017 10:04 PM Dictated Date/Time: 10/24/2017 9:58 PM
[2017-10-24] MEDS ORDERED: LEVETIRACETAM IV 1,000 MG in DEXTROSE 5% 100ML 100 ML IV ONE (22:15)
--- NOTE | 2017-10-24 22:18 | DIAGNOSTIC IMAGING REPORT ---
FACIAL BONES-MXILLOFAC WITHOUT CLINICAL HISTORY: 37 years-old Male presenting with EVALUATE FOR TRAUMA/INJURY. Acute facial trauma COMPARISON STUDY: CT head and cervical spine of same day TECHNIQUE: High-resolution CT scan of the facial bones is performed. Images are reviewed in the axial, sagittal, and coronal planes. IV contrast was not administered for this examination. A dose lowering technique was utilized adhering to the principles of ALARA. CT DOSE: 4979.92 mGy.cm FINDINGS: Multiple fractures of the skull base are redemonstrated including left occipital and temporal bone fractures. Acute nondisplaced fracture of the clivus. Fractures of the left temporal bone are in close proximity to the petrous portion left internal carotid artery as seen on image 250 series 6. Additional fractures involve the clivus and left sphenoid sinus. Moderate bilateral mastoid effusions. Pterygoid plates, maxillary barrera, orbital barrera, nasal bone, zygomatic arches and mandible appear intact without additional acute fracture identified. Hemorrhage is noted within the left sphenoid sinus, posterior left ethmoid air cells and layering within the left maxillary sinus. Mild soft tissue swelling about the left ear. Air is noted within the soft tissues adjacent to the bilateral mastoid air cells. Fracture of the right temporal bone is suspected however not definitively seen. IMPRESSION: 1. Multiple acute fractures of the skull base including clivus, left occipital, left temporal bone and left sphenoid fractures. Hemorrhage is noted within the left sphenoid sinus, ethmoid air cells, left maxillary sinus and bilateral mastoid air cells. Deep tissue air about the right temporal bone suggests a right temporal bone fracture which is not definitively seen. Fluid is also noted within the bilateral middle ear cavities. 2. Fracture of the left temporal bone is in close proximity to the petrous portion left internal carotid artery. Correlate clinically to exclude vascular injury. The above report was generated using voice recognition software. It may contain grammatical, syntax or spelling errors. Electronically signed by: Brayden Landry M.D. 10/24/2017 10:17 PM Dictated Date/Time: 10/24/2017 10:05 PM
--- NOTE | 2017-10-24 22:21 | DIAGNOSTIC IMAGING REPORT ---
PELVIS 1 OR 2 VIEW ROUTINE HISTORY: 37 years-old Male s/p fall acute pelvic injury status post fall COMPARISON: CT abdomen and pelvis of same day TECHNIQUE: AP view of the pelvis FINDINGS: Contrast is seen within the urinary bladder lumen and distal ureters. Degenerative changes are noted about the bilateral hips which appear to be moderate. No acute fracture or subluxation is identified. No pelvic ring fracture. IMPRESSION: No acute fracture or dislocation. The above report was generated using voice recognition software. It may contain grammatical, syntax or spelling errors. Electronically signed by: Brayden Landry M.D. 10/24/2017 10:20 PM Dictated Date/Time: 10/24/2017 10:19 PM
--- NOTE | 2017-10-24 22:22 | DIAGNOSTIC IMAGING REPORT ---
CHEST ONE VIEW PORTABLE HISTORY: 37 years-old Male EVALUATE FOR TRAUMA/INJURY acute chest trauma status post fall COMPARISON: Chest radiograph 08/27/2017 TECHNIQUE: Supine AP view of the chest FINDINGS: Cardiomediastinal and hilar silhouettes are within normal limits. No pneumothorax, pleural effusion, focal airspace consolidation or overt pulmonary edema. Linear catheter or lead overlies the epigastric region. Bones appear grossly intact. IMPRESSION: No acute process. The above report was generated using voice recognition software. It may contain grammatical, syntax or spelling errors. Electronically signed by: Brayden Landry M.D. 10/24/2017 10:21 PM Dictated Date/Time: 10/24/2017 10:20 PM
[2017-10-24 22:26] LABS: PTT PATIENT 24.9 SECONDS (21.0-31.0)
--- NOTE | 2017-10-24 22:34 | DIAGNOSTIC IMAGING REPORT ---
CHEST CT WITH CONTRAST HISTORY: Acute chest and abdominal trauma Trauma TECHNIQUE: Multiaxial CT images of the chest, abdomen and pelvis were performed following the intravenous administration of contrast. A dose lowering technique was utilized adhering to the principles of ALARA. COMPARISON: None. FINDINGS: CT CHEST: Homogeneous thyroid. No pathologic adenopathy. Heart is normal in size without pericardial effusion or mediastinal hematoma. The imaged great vessels appear patent. No aortic aneurysm or dissection. The opacified pulmonary arterial tree is unremarkable. Fat attenuation is noted at the level of the left lung base, notably image 224 series 12 with mild irregularity of the adjacent diaphragm, also seen on the same image. No pneumothorax or pleural effusion. Bibasilar groundglass opacities suggest atelectasis. There are several scattered nodules measuring up to 3 mm which are nonspecific. 4 mm nodule of the inferior segment lingula. No large pulmonary contusion or pulmonary laceration. Central airways appear patent. Soft tissues are unremarkable. The bones appear intact. No acute displaced rib fractures. No sternal fracture. CT ABDOMEN/PELVIS: The liver, gallbladder, spleen, pancreas and adrenal glands are within normal limits. Low attenuating lesions of the left kidney measuring up to 7 mm suggest renal cysts. No evidence of acute solid organ injury, pneumatosis or pneumoperitoneum. Aorta is normal in course and caliber. No bulky adenopathy. No focal bowel wall thickening or evidence of bowel injury. Urinary bladder is within normal limits. Normal appendix. Soft tissues are unremarkable. Degenerative changes of the bilateral SI joints. No spine fracture. Degenerative changes about the bilateral hips. IMPRESSION: 1. No acute intrathoracic, intra-abdominal or intrapelvic abnormality identified. No definite acute fracture or evidence of acute solid organ injury. 2. No pneumoperitoneum, or pneumothorax. 3. Fat attenuation of the left lung base suggests probable Bochdalek hernia with a very subtle acute diaphragmatic injury thought to be less likely. Electronically signed by: Brayden Landry M.D. 10/24/2017 10:33 PM Dictated Date/Time: 10/24/2017 10:17 PM
[2017-10-24 23:37] VITALS: BP 119/74; PULSE 92; O2SAT 98
== END 2017-10-24 23:38 | disposition short-term general hospital (02) ==
LOC: EDBD 21:06 → C.EDA 21:07
DX: S06.6X1A Traumatic subarachnoid hemorrhage with loss of consciousness of 30 minutes or less, initial encounter (principal); S02.19XA Other fracture of base of skull, initial encounter for closed fracture; S02.119A Unspecified fracture of occiput, initial encounter for closed fracture; S02.102A Fracture of base of skull, left side, initial encounter for closed fracture; S00.432A Contusion of left ear, initial encounter; M79.642 Pain in left hand; M25.562 Pain in left knee; Z23 Encounter for immunization; W10.9XXA Fall (on) (from) unspecified stairs and steps, initial encounter; F17.200 Nicotine dependence, unspecified, uncomplicated